=== PATIENT | female | born 1990 | race Caucasian/White ===

== ENCOUNTER 2020-11-04 14:57 | Outpatient (CLI) | payer BC, SELFPAY ==
[2020-11-04 15:58] LABS: Beta HCG Quantitative 8.31 mIU/ML
== END 2020-11-04 14:58 | disposition home or self-care (01) ==
PROVIDERS: Visit Provider Obstetrics & Gynecology
DX: N91.2 Amenorrhea, unspecified (principal)
CPT/HCPCS: 36415; 84702

== ENCOUNTER → 2021-01-10 15:29 | Outpatient (CLI) | payer BC, SELFPAY ==
--- NOTE | ~2021-01-10 | CT_ITS ---
EXAMINATION: CT sinus wo con DATE: 01/10/2021 15:44 INDICATION: Chronic sinusitis. TECHNIQUE: Computed tomography (CT) of the paranasal sinuses was performed without intravenous contra st. Iterative reconstruction technique was employed. The dose-length product was 306.55 mGy-cm. COMPARISON: None FINDINGS: The frontal sinuses are clear. There is mild mucosal thickening in the bilateral ethmoid si nuses. The sphenoid sinuses are clear. The maxillary sinuses are clear. There are Jose cells bilate rally. There is trin[place] bullosa involving the bilateral middle turbinates. There is leftward deviation of the nasal septum. The ostiomeatal units are widely patent. IMPRESSION: 1. Mild mucosal thickening in the ethmoid sinuses. 2. Leftward deviation of the nasal septum. Reviewed, dictated and finalized at location A.
== END ==
PROVIDERS: PCP Student in an Organized Health Care Education/Training Program; Visit Provider Otolaryngology
DX: J32.9 Chronic sinusitis, unspecified (principal); J34.2 Deviated nasal septum
CPT/HCPCS: 70486

== ENCOUNTER 2021-01-23 15:10 | Outpatient (CLI) | payer BC, SELFPAY ==
[2021-01-25 18:45] LABS: Progesterone 29.2 ng/mL (***)
== END 2021-01-23 15:11 | disposition home or self-care (01) ==
LOC: ANHBWCLAB 15:12
PROVIDERS: PCP Student in an Organized Health Care Education/Training Program; Visit Provider Obstetrics & Gynecology
DX: Z34.91 Encounter for supervision of normal pregnancy, unspecified, first trimester (principal); N91.2 Amenorrhea, unspecified; Z3A.00 Weeks of gestation of pregnancy not specified
CPT/HCPCS: 36415; 84144; 84702

== ENCOUNTER 2021-01-25 15:48 | Outpatient (CLI) | payer BC, SELFPAY | END 2021-01-25 15:49 | disposition home or self-care (01) | LOC: ANHBWCLAB 15:50 | PROVIDERS: PCP Student in an Organized Health Care Education/Training Program; Visit Provider Obstetrics & Gynecology | DX: Z34.91 Encounter for supervision of normal pregnancy, unspecified, first trimester (principal); Z3A.01 Less than 8 weeks gestation of pregnancy | CPT/HCPCS: 36415; 84702 ==

== ENCOUNTER 2021-01-26 09:27 | Outpatient (CLI) | payer BC, SELFPAY ==
--- NOTE | ~2021-01-26 | US_ITS ---
EXAMINATION: US OB <=14 wk fetus w TV DATE: 01/26/2021 10:27 INDICATION: Early . TECHNIQUE: Real-time transabdominal and transvaginal pelvic ultrasound was performed. COMPARISON: None. FINDINGS: TRANSABDOMINAL ULTRASOUND: The uterus measures 10.6 x 5.3 x 7.9 cm. TRANSVAGINAL ULTRASOUND: There is an intrauterine gestational sac. A yolk sac is identified. The fet al crown rump length measures 1.3 cm, which correlates with an estimated gestational age of 7 weeks a nd 3 day(s) (+/-) 5 day(s). heart motion is identified measuring 163 beats per minute (bpm) by M-mode Doppler. The right ovary measures 2.5 x 1.3 x 1.6 cm. The left ovary measures 3.1 x 2.6 x 3.0 cm. There is no free fluid in the pelvis. IMPRESSION: 1. Single living intrauterine gestation with estimated date of delivery of 09/11/2021. Reviewed, dictated and finalized at location A. IMPRESSION: 1. Single living intrauterine gestation with estimated date of delivery of 09/11.
== END 2021-01-26 09:28 | disposition home or self-care (01) ==
PROVIDERS: PCP Student in an Organized Health Care Education/Training Program; Visit Provider Obstetrics & Gynecology
DX: O09.291 Supervision of pregnancy with other poor reproductive or obstetric history, first trimester (principal); Z3A.01 Less than 8 weeks gestation of pregnancy
CPT/HCPCS: 76801; 76817

== ENCOUNTER 2021-02-08 15:32 | Outpatient (CLI) | payer BC, SELFPAY ==
[2021-02-08 16:21] LABS: Add Urine Microscopic? YES; Appearance Urine Clear (Clear); Bilirubin Urine Negative (Negative); Blood Urine Negative (Negative); Color Urine Yellow (Yellow); Glucose Urine UA Negative (Negative); Ketones Urine Negative (Negative); Leukocyte Esterase Ur Trace LEU/UL (NEGATIVE); Nitrate Urine Negative (Negative); Protein Urine Negative (Negative); Specific Grav Ur 1.011 (1.001-1.035); Squamous Epithelial Cell Urine Occasional /hpf (Few); Urobilinogen Urine Negative mg/dL (<2.0); WBC Urine 0-3 /hpf (0-3)
[2021-02-08 16:24] LABS: Basophils Percent Auto 0.4 % (0.2-1.2); Eosinophils Percent Auto 0.3 % (0-4.4); Hematocrit 41.5 % (37.0-47.0); Hemoglobin 13.5 g/dL (12.0-15.0); Immature Granulocyte Absolute 0.02 K/mm3 (0.00-0.031); Immature Granulocyte Percent A 0.3 % (0-0.5); Lymphocytes Absolute Auto 2.65 K/mm3 (0.9-3.2); Lymphocytes Percent Auto 36.6 % (18.3-44.2); Mean Corpuscular HGB Conc 32.5 g/dl (32-36); Mean Corpuscular Hemoglobin 30.9 pg (26-34); Mean Platelet Volume 9.5 fl (7.4-10.4); Monocytes Absolute Auto 0.6 K/mm3 (0.1-0.6); Monocytes Percent Auto 7.7 % (2.6-8.5); Neutrophils Percent Auto 54.7 % (45.5-73.1); Platelet Count Result 246 k/mm3 (150-375); Red Blood Count 4.37 M/mm3 (4.2-5.4); Red Cell Distribution Width 12.4 % (11.5-14.5); White Blood Count 7.3 K/mm3 (4.5-10.0)
[2021-02-08 17:02] LABS: Thyroid Stimulating Hormone 0.935 uIU/mL (0.465-4.680)
[2021-02-08 17:12] LABS: HIV 1/2 Ab P24 Ag Result Negative (Negative)
[2021-02-08 18:15] LABS: Hepatitis B Surface Antigen Negative (Negative); Rubella IgG Antibody 67.5 IU/ML
[2021-02-08 18:23] LABS: Rapid Plasma Reagin Non-Reactive (NonReactive)
[2021-02-08 18:27] LABS: Hepatitis C Virus Antibody Negative (Negative)
[2021-02-13 00:16] LABS: Hematocrit 39.4 % (35.0-45.0); Hemoglobin 13.3 g/dL (11.7-15.5); MCH 32.2 pg (27.0-33.0); Red Blood Cell Count 4.15 Mill/uL (3.80-5.10)
[2021-02-15 18:38] LABS: CF Result NEGATIVE (NEGATIVE); Ethnicity NG
== END 2021-02-08 15:33 | disposition home or self-care (01) ==
LOC: ANHLAB 15:34
PROVIDERS: PCP Student in an Organized Health Care Education/Training Program; Visit Provider Obstetrics & Gynecology
DX: Z34.90 Encounter for supervision of normal pregnancy, unspecified, unspecified trimester (principal)
CPT/HCPCS: 36415; 81001; 81220; 82306; 83021; 84443; 85025; 86592; 86703; 86762; 86787; 86803; 86850; 86900; 86901; 87086; 87340; G0432

== ENCOUNTER 2021-06-16 06:53 | Outpatient (CLI) | payer BC, SELFPAY ==
[2021-06-16 09:01] LABS: Basophils Percent Auto 0.5 % (0.2-1.2); Eosinophils Absolute Auto 0.1 K/mm3 (0-0.3); Eosinophils Percent Auto 0.8 % (0-4.4); Hematocrit 38.5 % (37.0-47.0); Hemoglobin 12.6 g/dL (12.0-15.0); Immature Granulocyte Absolute 0.05 K/mm3 (0.00-0.031); Immature Granulocyte Percent A 0.6 % (0-0.5); Lymphocytes Absolute Auto 1.91 K/mm3 (0.9-3.2); Lymphocytes Percent Auto 24.2 % (18.3-44.2); Mean Corpuscular HGB Conc 32.7 g/dl (32-36); Mean Corpuscular Hemoglobin 32.1 pg (26-34); Mean Corpuscular Volume 98.2 fl (80-100); Mean Platelet Volume 9.6 fl (7.4-10.4); Monocytes Absolute Auto 0.6 K/mm3 (0.1-0.6); Monocytes Percent Auto 7.1 % (2.6-8.5); Neutrophils Absolute Auto 5.3 K/mm3 (1.3-6.7); Neutrophils Percent Auto 66.8 % (45.5-73.1); Platelet Count Result 242 k/mm3 (150-375); Red Blood Count 3.92 M/mm3 (4.2-5.4); Red Cell Distribution Width 12.7 % (11.5-14.5); White Blood Count 7.9 K/mm3 (4.5-10.0)
[2021-06-16 09:15] LABS: Glucose 1 Hour PP 50gm Dose 83 mg/dL
== END 2021-06-16 06:54 | disposition home or self-care (01) ==
LOC: ANHLAB 06:55
PROVIDERS: PCP Student in an Organized Health Care Education/Training Program; Visit Provider Obstetrics & Gynecology
DX: Z34.90 Encounter for supervision of normal pregnancy, unspecified, unspecified trimester (principal)
CPT/HCPCS: 36415; 82947; 85025

== ENCOUNTER 2021-07-25 15:28 | Outpatient (CLI) | payer BC, SELFPAY ==
[2021-07-25 15:59] LABS: Basophils Percent Auto 0.4 % (0.2-1.2); Eosinophils Percent Auto 0.4 % (0-4.4); Hematocrit 36.4 % (37.0-47.0); Hemoglobin 12.3 g/dL (12.0-15.0); Immature Granulocyte Absolute 0.04 K/mm3 (0.00-0.031); Immature Granulocyte Percent A 0.4 % (0-0.5); Lymphocytes Absolute Auto 2.52 K/mm3 (0.9-3.2); Lymphocytes Percent Auto 27.6 % (18.3-44.2); Mean Corpuscular HGB Conc 33.8 g/dl (32-36); Mean Corpuscular Hemoglobin 31.3 pg (26-34); Mean Corpuscular Volume 92.6 fl (80-100); Mean Platelet Volume 9.4 fl (7.4-10.4); Monocytes Absolute Auto 0.7 K/mm3 (0.1-0.6); Monocytes Percent Auto 7.9 % (2.6-8.5); Neutrophils Absolute Auto 5.8 K/mm3 (1.3-6.7); Neutrophils Percent Auto 63.3 % (45.5-73.1); Platelet Count Result 249 k/mm3 (150-375); Red Blood Count 3.93 M/mm3 (4.2-5.4); Red Cell Distribution Width 12.1 % (11.5-14.5); White Blood Count 9.1 K/mm3 (4.5-10.0)
[2021-07-25 16:39] LABS: HIV 1/2 Ab P24 Ag Result Negative (Negative)
[2021-07-26 06:25] LABS: Rapid Plasma Reagin Non-Reactive (NonReactive)
== END 2021-07-25 15:29 | disposition home or self-care (01) ==
LOC: ANHLAB 15:30
PROVIDERS: PCP Student in an Organized Health Care Education/Training Program; Visit Provider Obstetrics & Gynecology
DX: Z36.89 Encounter for other specified antenatal screening (principal); Z3A.33 33 weeks gestation of pregnancy
CPT/HCPCS: 36415; 85025; 86592; 86703; G0432

== ENCOUNTER 2021-09-11 11:29 | Outpatient (RCR) | payer BC, SELFPAY ==
[2021-08-08 16:31] VITALS: BP 126/75; PULSE 88
--- NOTE | ~2021-09-11 | US_ITS ---
EXAMINATION: US OB limited w BPP DATE: 09/11/2021 12:29 INDICATION: Term . Assess amniotic fluid index and biophysical profile. TECHNIQUE: Real-time pelvic ultrasound was performed. The interpreting radiologist was not present fo r the study. COMPARISON: None. FINDINGS: There is a single living fetus in vertex presentation. The placenta is posterior. heart rate i s 153 beats per minute (bpm). Normal amniotic fluid index of 16.0 cm (5th%-95%: 7.1-21.4 cm at 40 wee ks estimated gestational age) . Biophysical profile performed by the technologist: breathing (30 sec sustained breathing in 30 minutes): 2 out of 2 movement (3 gross body movements in 30 minutes): 2 out of 2 tone (one episode of olpvfgt-sgjrpvtix-fyjsmkx limb movement): 2 out of 2 Amniotic fluid pocket (2 cm): 2 out of 2 Total score: 8 out of 8 IMPRESSION: 1. Single living fetus in vertex presentation with heart rate of 153 bpm. 2. Biophysical profile 8 out of 8. 3. Normal amniotic fluid index of 16.0 cm. Reviewed, dictated and finalized at location B. K WASHER
--- NOTE | ~2021-09-11 | US_ITS ---
EXAMINATION: US OB BPP wo non-stress DATE: 08/08/2021 17:18 INDICATION: Bradycardia. Third trimester. TECHNIQUE: Real-time pelvic ultrasound was performed. COMPARISON: Ultrasound 01/26/2021 FINDINGS: There is a single living fetus in vertex presentation. The placenta is posterior. heart rate i s 129 beats per minute (bpm). Biophysical profile performed by the technologist: breathing (30 sec sustained breathing in 30 minutes): 2 out of 2 movement (3 gross body movements in 30 minutes): 2 out of 2 tone (one episode of hvxsqyx-jpfijfnqv-glxligf limb movement): 2 out of 2 Amniotic fluid pocket (2 cm): 2 out of 2 Total score: 8 out of 8 IMPRESSION: 1. Single living fetus in vertex presentation. 2. Biophysical profile 8 out of 8. Reviewed, dictated and finalized at location A. RAFT INSPECTOR
[2021-09-11 14:21] VITALS: BP 125/85; PULSE 88
== END 2021-10-13 20:42 | disposition home or self-care (01) ==
LOC: ANHOBOP 11:29
PROVIDERS: PCP Student in an Organized Health Care Education/Training Program; Visit Provider Obstetrics & Gynecology
DX: O36.8330 Maternal care for abnormalities of the fetal heart rate or rhythm, third trimester, not applicable or unspecified (principal); Z3A.35 35 weeks gestation of pregnancy; Z3A.40 40 weeks gestation of pregnancy
CPT/HCPCS: 59025; 76815; 76819

== ENCOUNTER 2021-09-13 18:53 | Inpatient (IN) | payer BC, SELFPAY ==
[2021-09-13 19:16] VITALS: BMI 32.7
--- NOTE | 2021-09-13 19:16 | LDADM ---
This patient, Jaida Balbuena, was admitted to Labor/Delivery/Recovery 104 on 09/13/21 at 18:53. Plans for labor, pain management and were discussed with patient. Patient/family oriented to hospital policies and general routines including ID bracelet, bed and alarms, visiting hours, pain management, procedures, bathroom and other care routines, personal items, smoking policy, room service/diet and guest tray routines, security routines, and visiting hours. Patient/Family are encouraged to report perceived risks to care and to ask questions if they do not understand what they are told or what they should do. See OBIX for further documentation.
[2021-09-13 19:31] LABS: Basophils Percent Auto 0.4 % (0.2-1.2); Eosinophils Percent Auto 0.3 % (0-4.4); Hematocrit 40.4 % (37.0-47.0); Hemoglobin 13.7 g/dL (12.0-15.0); Immature Granulocyte Absolute 0.04 K/mm3 (0.00-0.031); Immature Granulocyte Percent A 0.4 % (0-0.5); Lymphocytes Absolute Auto 2.49 K/mm3 (0.9-3.2); Lymphocytes Percent Auto 22.6 % (18.3-44.2); Mean Corpuscular HGB Conc 33.9 g/dl (32-36); Mean Corpuscular Hemoglobin 31.3 pg (26-34); Mean Corpuscular Volume 92.2 fl (80-100); Mean Platelet Volume 9.7 fl (7.4-10.4); Monocytes Absolute Auto 0.9 K/mm3 (0.1-0.6); Monocytes Percent Auto 7.9 % (2.6-8.5); Neutrophils Absolute Auto 7.5 K/mm3 (1.3-6.7); Neutrophils Percent Auto 68.4 % (45.5-73.1); Platelet Count Result 234 k/mm3 (150-375); Red Blood Count 4.38 M/mm3 (4.2-5.4); Red Cell Distribution Width 12.9 % (11.5-14.5)
[2021-09-13] MEDS: DINOPROSTONE 10 MG VAG INSERT VAGINAL (20:47)
[2021-09-13 21:08] VITALS: RESP 18; TEMP 37.3
[2021-09-13 22:05] VITALS: BP 134/84; PULSE 86
[2021-09-13 22:30] VITALS: BP 139/98; PULSE 89
[2021-09-14] VITALS (68 sets, daily range): BP systolic 97–142; BP diastolic 54–99; PULSE 74–138; RESP 16–18; TEMP 36.4–37.2; O2SAT 97–100
[2021-09-14] MEDS: CALCIUM CARBONATE (TUMS) 500 MG (200 MG ELEMENTAL) PO (00:17)
[2021-09-14] MEDS: LACTATED RINGERS 1,000 ML 125 ML IV CONT (00:44)
--- NOTE | 2021-09-14 01:15 | WPDANESEPP ---
Anes - Eval Pre Procedure Procedure: Labor epidural Date/Time: 09/14/21 01:15 Surgeon: rudy Preop Diagnosis: Abd pain with contractions Pre Op Diagnosis: IOL Patient Data Age: 30 Gender: F Height: 1.68 m Weight: 92 kg Last Vital Signs Temp 99.2 F 09/13/21 21:08 Pulse 89 09/13/21 22:30 Resp 18 09/13/21 21:08 BP 139/98 H 09/13/21 22:30 Allergies Allergy/AdvReac Type Severity Reaction Status Date / Time No Known Allergies Allergy Verified 09/12/21 15:23 Home Medications Medication Instructions Recorded Confirmed Type cetirizine 10 mg tablet 10 mg PO DAILY PRN 01/23/21 08/29/21 History fluticasone propionate 50 1 spray INTRANASAL DAILY 01/23/21 08/29/21 History mcg/actuation nasal spray,suspension prenat.vits,naz,tyg-sxsw-zfldm 1 tablet PO DAILY 01/23/21 08/29/21 History Laboratory Tests 09/13/21 09/13/21 09/13/21 19:24 19:24 19:24 WBC 11.0 K/mm3 H K/mm3 (4.5-10.0) RBC 4.38 M/mm3 M/mm3 (4.2-5.4) Hgb 13.7 g/dL g/dL (12.0-15.0) Hct 40.4 % % (37.0-47.0) MCV 92.2 fl fl (80-100) MCH 31.3 pg pg (26-34) MCHC 33.9 g/dl g/dl (32-36) RDW 12.9 % % (11.5-14.5) Plt Count 234 k/mm3 k/mm3 (150-375) MPV 9.7 fl fl (7.4-10.4) Immature Gran % (Auto) 0.4 % % (0-0.5) Neut % (Auto) 68.4 % % (45.5-73.1) Lymph % (Auto) 22.6 % % (18.3-44.2) [place] % (Auto) 7.9 % % (2.6-8.5) Eos % (Auto) 0.3 % % (0-4.4) Baso % (Auto) 0.4 % % (0.2-1.2) Lymph # (Auto) 2.49 K/mm3 K/mm3 (0.9-3.2) [place] # (Auto) 0.9 K/mm3 H K/mm3 (0.1-0.6) Eos # (Auto) 0.0 K/mm3 K/mm3 (0-0.3) Baso # (Auto) 0.0 K/mm3 K/mm3 (0.0-0.1) Abs Immat Gran (auto) 0.04 K/mm3 H K/mm3 (0.00-0.031) Absolute Neuts (auto) 7.5 K/mm3 H K/mm3 (1.3-6.7) Absolute Nucleated RBC 0.0 K/mm3 K/mm3 (0.0-0.012) Nucleated RBC % 0.0 % % (0.0-0.2) RPR Pending Blood Type O Positive Antibody Screen Negative Patient hx anesthesia problems: none Family hx anesthesia problems: none Results Review: All pre-operative results and documents have been reviewed as part of the pre-operative evaluation. [facility] Past Medical History Medical History Overweight (BMI 25.0-29.9) and not yet delivered Seasonal allergies Family History Family History Father Hypertension Family history of elevated blood lipids Grandparent Family history of elevated blood lipids Cerebrovascular accident Social History Social History Smoking status: Never smoker Second hand tobacco smoke exposure: No Alcohol intake: current Alcohol use details: Rarely Substance use: unknown Spiritual care concerns: No Exam Day of Procedure 09/14/21 01:15 Patient weight: overweight Airway: Mallampati scale class II Neurological: alert and oriented
[2021-09-14] MEDS: OXYTOCIN 30 UNITS/NS 500 ML 30 UNITS/500 ML BAG 6 UNITS IV CONT (04:23)
[2021-09-14] MEDS: ONDANSETRON INJ 4 MG/2 ML VIAL IV PUSH (06:37)
[2021-09-14] MEDS: OXYTOCIN 30 UNITS/NS 500 ML 30 UNITS/500 ML BAG 125 UNITS IV CONT (12:46)
--- NOTE | 2021-09-14 12:53 | PM.IMHP ---
H&P: HPI History of Present Illness Date/Time: 09/14/21 12:53 Patient admitted on 09/13/2021 for MIL for post dates. She is at 40 2/7 days by LMP of 12/05/20 with an EDC 09/11/21 consistent with an 8 week ultrasound. PNC has been uncomplicated. Labs reviewed. GSB neg. She has been informed of risk benefit of spontaneous labor versus induction of labor. She desires induction of labor. Chief Complaint: Induction of labor Review of Systems Review of Systems: All systems reviewed & are unremarkable except as noted in HPI and below Constitutional: Constitutional: Reports no additional constitutional complaints and Denies headache(s) Eyes: Eyes: Denies spots in vision ENT: Reports system reviewed and no additional complaints, except as documented and Denies headache(s) Cardiovascular: Cardiovascular: Denies chest pain and Denies dyspnea Respiratory: Respiratory: Denies dyspnea Gastrointestinal: Gastrointestinal: Reports no additional gastrointestinal complaints Genitourinary: Genitourinary: Reports amenorrhea Musculoskeletal: Musculoskeletal: Reports no additional musculoskeletal complaints Integumentary/Breasts: Skin/Breast: Denies breast mass and Denies rash Neurologic: Denies headache(s) Psychiatric: Psychiatric: Reports no additional psychiatric complaints [facility] Past Medical History Medical History Overweight (BMI 25.0-29.9) and not yet delivered Seasonal allergies Family History Family History Father Hypertension Family history of elevated blood lipids Grandparent Family history of elevated blood lipids Cerebrovascular accident Social History Social History Smoking status: Never smoker Second hand tobacco smoke exposure: No Alcohol intake: current Alcohol use details: Rarely Substance use: unknown Spiritual care concerns: No Meds Home Medications and Allergies Home Medications Medication Instructions Recorded Confirmed Type cetirizine 10 mg tablet 10 mg PO DAILY PRN 01/23/21 08/29/21 History fluticasone propionate 50 1 spray INTRANASAL DAILY 01/23/21 08/29/21 History mcg/actuation nasal spray,suspension prenat.vits,naz,xoq-gzib-jwxsg 1 tablet PO DAILY 01/23/21 08/29/21 History Allergies Allergy/AdvReac Type Severity Reaction Status Date / Time No Known Allergies Allergy Verified 09/12/21 15:23 Vital Signs Vital Signs - 24 hr 09/13/21 21:08 09/13/21 22:05 09/13/21 22:30 Temperature 99.2 F Pulse Rate 86 89 Respiratory Rate 18 Blood Pressure 134/84 139/98 H Pulse Oximetry 09/14/21 01:18 09/14/21 01:19 09/14/21 01:21 Temperature Pulse Rate 100 96 Respiratory Rate Blood Pressure 137/83 134/82 Pulse Oximetry 97 09/14/21 01:23 09/14/21 01:24 09/14/21 01:28 Temperature Pulse Rate 99 105 H Respiratory Rate Blood Pressure 142/90 H 108/81 Pulse Oximetry 98 98 09/14/21 01:30 09/14/21 01:33 09/14/21 01:36 Temperature Pulse Rate 93 98 102 H Respiratory Rate Blood Pressure 101/64 104/67 103/75 Pulse Oximetry 99 09/14/21 01:38 09/14/21 01:40 09/14/21 01:42 Temperature Pulse Rate 101 H 92 Respiratory Rate Blood Pressure 103/71 102/61 Pulse Oximetry 99 09/14/21 01:43 09/14/21 01:45 09/14/21 01:48 Temperature Pulse Rate 85 80 Respiratory Rate Blood Pressure 100/61 115/58 L Pulse Oximetry 99 98 09/14/21 01:52 09/14/21 01:53 09/14/21 01:54 Temperature Pulse Rate 102 H 96 Respiratory Rate Blood Pressure 104/59 L 120/81 Pulse Oximetry 98 09/14/21 01:58 09/14/21 02:00 09/14/21 02:15 Temperature Pulse Rate 107 H 84 82 Respiratory Rate Blood Pressure 106/62 105/54 L 100/59 L Pulse Oximetry 100 09/14/21 02:30 09/14/21 02:45 09/14/21 03:00 Temperature 99 F Pulse Rate 102 H
--- NOTE | 2021-09-14 12:55 | PM.OBPRVD ---
OB - Delivery Note Procedure Delivery date: 09/14/21 Procedure: Spontaneous vaginal delivery Induction method: per misoprostol protocol Delivery monitor: external FHT Route of delivery: Laceration Description: Perineal - 2nd Degree Delivery repair: vicryl ( 3 0 Vicryl) Specimen: Yes ( placenta and cord) Quantitative Blood Loss (ml): 250 Anesthesia type: Epidural Disposition: floor Complications: retained placental membranes removed manually [place] Baby Date of : 09/14/21 Weeks of gestation at delivery: 40 Infant gender: Female Weight (pounds): 8 Weight (ounces): 12 presentation: vertex position: Left Occiput Anterior Placenta delivery description: Spontaneous and Uterine Exploration ( this was performed after inspecting the placenta and it appeared that the membranes were not all present) cord vessel description: 3 Vessels Narrative: patient admitted on 09/13/2020 for medical induction of labor for postdates. Misoprostol was initiated she started having decelerations with this and the misoprostol was not silk screen printer machine the adequate position. She was then checked and her cervix was 4 cm the misoprostol was removed. She progressed into active labor. She had assisted rupture of membranes at approximately 8:20 a.m. she was dilated to a JOZEF at that time. The fluid was clear. She did receive Pitocin for augmentation and she dilated to complete. She pushed for approximately an hour and delivered a female infant. Nose mouth suctioned at perineum. The anterior shoulder was delivered and the infant was delivered. She was vigorously crying and placed on maternal abdomen. Terminal meconium noted. Delayed cord calmaping for 45 seconds until cord was apulsatile. The cord was then clamped and cut. Cord blood and cord gases obtained. Placenta delivery spontaneous. The placenta was inspected and it appeared that all of membranes were not present. The uterine cavity was explored and membranes were palpated and adhesed to cavity. The membranes were grasped with ring forceps and maually exploration and the membranes were retrieved. The uterine tone was firm. She sustained a second degree perineal laceration repaired with 3.0 vicryl. She tolerated procedure well. EBL 250cc. Sponge count correct. [facility] Delivery Billing Delivery Delivery: Delivery Charge
[2021-09-14 13:58] LABS: Rapid Plasma Reagin Non-Reactive (NonReactive)
[2021-09-14] MEDS: BENZOCAINE 20% AER SPR (*SP) 56 GM CAN 1 SPRAY TOPICAL (14:51)
[2021-09-14] MEDS: WITCH HAZEL 40 PADS 1 PAD TOPICAL (14:51)
--- NOTE | 2021-09-14 15:10 | PC.NURSE ---
Patient transferred to post room #280 per wheelchair. Support person present. Oriented to unit, room, information board, rooming in, admission packet and security measures. Patient verbalizes understanding.
--- NOTE | 2021-09-14 15:51 | PC.NURSE ---
1550 - Consulted with patient, reviewed infant feeding cues, frequencies and skin to skin. Father of baby demonstrated stimulation techniques to wake infant for feeding. Primary RN assisting mom to the restroom, then will be placed skin to skin. Instructed mother to call out for RN assistance if she is unable to latch for feeding or she has discomfort with nursing. Instructed feeding should be initiated three hours from start of last feeding or if feeding cues are noted before. Mother voiced understanding of information shared.
--- NOTE | 2021-09-14 16:30 | PC.NURSE ---
Nipple shield provided to mother due to ineffective latch. Instructions given on application and cleaning of shield. Discussed nipple shield precautions and possible complications. Patient able to return demonstration on proper application of shield. Discussed the need to initiate pumping if continues to nurse with the shield. Patient verbalizes understanding.
[2021-09-14] MEDS: IBUPROFEN 600 MG TABLET PO ×2 (18:08→23:30)
[2021-09-14] MEDS: DOCUSATE SODIUM 100 MG CAPSULE PO (18:09)
--- NOTE | 2021-09-14 18:30 | PC.NURSE ---
Breast pump provided due to nipple shield use. Instructions given on breast pump care and usage, pumping schedule, nipple care, and collection and storage of breast milk. Encouraged brdz-ff-giwz, breast massage and manual expression to stimulate supply. Assessed patient for correct flange size, placement and draw. Patient verbalizes and demonstrates understanding of instructions.
[2021-09-15 04:13] LABS: Hematocrit 37.3 % (37.0-47.0); Hemoglobin 12.4 g/dL (12.0-15.0)
[2021-09-15] MEDS: IBUPROFEN 600 MG TABLET PO ×4 (05:58→23:50)
[2021-09-15] MEDS: WITCH HAZEL 40 PADS 1 PAD TOPICAL (07:37)
[2021-09-15] MEDS: DOCUSATE SODIUM 100 MG CAPSULE PO ×2 (07:37→17:00)
[2021-09-15] MEDS: BENZOCAINE 20% AER SPR (*SP) 56 GM CAN 1 SPRAY TOPICAL (07:37)
[2021-09-15] MEDS: MULTIVIT/MIN/PREN/FOL AC/IRON TABLET 1 TAB PO (07:42)
[2021-09-15 08:00] VITALS: BP 108/78; PULSE 85; RESP 18; TEMP 36.6
--- NOTE | 2021-09-15 09:59 | WPDANLDPN2 ---
Anes-Prog Note L&D Date/Time: 09/15/21 09:59 Comfortable throughout: labor and delivery Neuraxial method: epidural Epidural/Spinal procedure site: clean & non-tender Neuro status: Neuro function grossly intact. Cardiovascular status: normal Respiratory status: normal Airway patency: baseline Mental status: baseline Post-Op hydration status: normal Vital Signs: Last Vital Signs Temp 37.1 C 09/14/21 20:57 Pulse 93 09/14/21 20:57 Resp 16 09/14/21 20:57 BP 127/80 09/14/21 20:57 Pulse Ox 100 09/14/21 01:58 Pain score (VAS): 3 Post-procedural complaints: none Patient feedback: Patient satisfied with anesthetic care.
--- NOTE | 2021-09-15 11:15 | PC.NURSE ---
0777 - Early shift reported that mom has been well with a nipple shield. Primary RN is present to assess pt. Pt states the last attempt to breastfeed with a nipple shield did not go very well. placed skin to skin. Pt verbalizes will call out for assistance. [id number] - Primary RN reports that sugar water used with nipple shield to latch and feed baby, then pt plans to pump (as set up by oriana Saxena RN) and supplement with pumped colostrum.
[2021-09-15 12:15] VITALS: BP 131/84; PULSE 87; RESP 16; TEMP 37; O2SAT 100
[2021-09-15 12:30] VITALS: BP 131/84; PULSE 87; RESP 16; TEMP 37; O2SAT 100
--- NOTE | 2021-09-15 12:35 | PM.OBPNVD ---
OB - PN: Subj Subjective Date/time seen: 09/15/21 12:35 Patient comments: pain well controlled, tolerating diet and other (Decreasing lochia.) baby status: doing well and nursing well Desmet feeding status: exclusively breast feeding OB - PN: Obj Data Labs CBC & Chem 7: 09/15/21 03:54 Labs: Laboratory Results - last 24 hr 09/13/21 09/15/21 19:24 03:54 Hgb 12.4 Hct 37.3 RPR Non-reactive OB - PN A/P Plan day: 1 Plan: routine care Comments: Patient doing well. Routine care. Time Spent With Patient Time: Total time spent is greater than 50% in coordination of care (as documented) at patient's floor/unit and/or counseling patient: Exam Psych: Affect: normal affect Other: Abd: fundus firm below umbilicus, nontender Perineum: healing Ext: nontender
[2021-09-15 19:03] VITALS: BP 115/82; PULSE 81; RESP 16; TEMP 36.8; O2SAT 98
[2021-09-16 07:30] VITALS: BP 114/73; PULSE 81; RESP 18; TEMP 36.7; O2SAT 98
--- NOTE | 2021-09-16 10:33 | PM.OBPNVD ---
OB - PN: Subj Subjective Date/time seen: 09/16/21 10:33 Patient comments: no complaints, pain well controlled and other (Lochia similar to menses) [place] baby status: doing well OB - PN: Obj Data Labs CBC & Chem 7: 09/15/21 03:54 OB - PN A/P Plan day: 2 (s/p vaginal delivery, doing well) Plan: routine care, discharge home and other (Follow up in office in 4-6 weeks) Time Spent With Patient Time: Total time spent is greater than 50% in coordination of care (as documented) at patient's floor/unit and/or counseling patient: Time with patient: less than 15 minutes Exam Const: General: no acute distress GI: Inspection: other (Fundus firm and nontender below umbilicus) GI Palp: Yes Soft to palpation and No Tenderness to palpation present (GI) Extrem: General: no edema
--- NOTE | 2021-09-16 10:34 | PM.OBDSVD ---
DS: Admitting Diagnosis Discharge Date 09/16/2021 Admitting Diagnosis induction of labor DS: Discharge Diagnosis Discharge Diagnosis (1) (spontaneous vaginal delivery): Code(s): O80 - Encounter for full-term uncomplicated delivery Status: Acute OB - DS: Summary OB Procedures : None OB Procedures Intrapartum: Spontaneous Vag Delivery, Uterine exploration and Retained placenta OB Procedures: : None Peripartum Data Infant Delivery Method: Natural Vaginal Laceration Description: Perineal - 2nd Degree complications: none and retained placenta (with manual removal) Status at Discharge Functional status at discharge: independent ambulation Overall status at discharge: patient is progressing back to baseline Time Spent with Patient Time attestation: Total time spent providing and/or coordinating discharge services: Time spent: Less than 30 minutes DS: Data Data Completed and Pending Pending studies at discharge: Pending at discharge 09/14/21 11:48 Surgical [PTH] Routine Discharge Plan Discharge Attending physician on discharge: Sonido Barger Discharging Clinician: Carolin Barron Patient Disposition: Home, Self-Care Activity: may shower and pelvic rest Diet: as tolerated Discharge Instructions: Education: Mom and Baby Guide Given to: Mother Follow-Up: Call your delivering provider's office for an appointment to be seen in: 4-6 Weeks [facility]. Appointment Date/Time: September 18, 2021 at 10:00 am What to expect at your follow-up visit: Blood Pressure Check Physical Assessment Call [phone] if you are unable to keep your appointment time. BREAST CARE: * Wear a snug supportive bra. * For engorgement discomfort: Breast Feeding: * Apply warm moist washcloths * Express milk as needed to relieve engorgement * Wear loose clothing * For sore nipples: * Identify correct latch-on * Apply warm moist washcloths before and after nursing * Air dry nipples after nursing * May apply Lansinoh cream to nipples EPISIOTOMY/PERINEAL CARE: * Until bleeding stops, use your heather bottle after urinating * Change your pad frequently throughout the day * You may take sitz baths several times a day (fill your bathtub with warm water and soak for 20 minutes.) Do NOT bathe in the water * No tub baths until seen by your physician - You may shower ACTIVITY: * Rest as much as possible. * Do not exercise or lift anything heavier than your baby (such as laundry or other children.) * Avoid stairs or driving as much as possible. * Do not put anything into the vagina. No douching, tampons, or sexual activity until seen by physician. NOTIFY PHYSICIAN IF YOU HAVE ANY QUESTIONS OR IF ANY OF THE FOLLOWING SYMPTOMS OCCUR: * If your vaginal area becomes red, swollen, or more painful than what you have experienced in the hospital. * If your vaginal bleeding becomes foul smelling. * If your vaginal bleeding becomes more heavy than a period or if your bleeding changes from the color it is now to bright crayon red'. However, you may pass an occasional walnut-sized clot once or twice for the first week . * If you experience a sharp, shooting pain in you calves. * If you discover a hard, reddened area on your breast or if you experience flu-like symptoms. DIET: * Eat regular, well-balanced meals. * Drink plenty of fluids daily. If , drink to thirst. Patient Instructions: Antibiotic Form, Vaginal Delivery (DC) Stand Alone Forms: General Discharge Information Follow-up/Referrals: Sonido Barger MD [Physician] - 6 Weeks Discharge Medications: New ibuprofen 600 mg Tablet 600 mg PO Q6H PRN (Reason: Cramping) Qty: 60 RF: 0 Continued prenat.vits,naz,gho-ohqj-evmly T
[2021-09-18 10:18] VITALS: BP 138/89; PULSE 89; RESP 20; TEMP 37.1; O2SAT 96
== END 2021-09-16 14:30 | disposition home or self-care (01) | DRG 807 ==
LOC: ANHOB2 09-16 10:35 → ANHLDR 09-19 07:35 → ANHOB2 09-19 07:35
PROVIDERS: Admitting Provider Obstetrics & Gynecology; PCP Student in an Organized Health Care Education/Training Program; Visit Provider Obstetrics & Gynecology
DX: O48.0 Post-term pregnancy (principal); Z37.0 Single live birth; Z3A.40 40 weeks gestation of pregnancy; O70.1 Second degree perineal laceration during delivery; O73.0 Retained placenta without hemorrhage; O36.8330 Maternal care for abnormalities of the fetal heart rate or rhythm, third trimester, not applicable or unspecified
CPT/HCPCS: 36415; 85014; 85018; 85025; 86592; 86850; 86900; 86901; 88307; A9270; J2405; J2590; J2795; J7120

== ENCOUNTER 2024-03-11 14:31 | Outpatient (CLI) | payer BC, SELFPAY ==
--- NOTE | ~2024-03-11 | US_ITS ---
EXAMINATION: US OB <=14 wk fetus w TV DATE: 03/11/2024 15:34 INDICATION: Amenorrhea, unspecified. TECHNIQUE: Real-time transabdominal and transvaginal pelvic ultrasound was performed. COMPARISON: None. FINDINGS: TRANSABDOMINAL ULTRASOUND: The uterus measures 13.1 x 7.2 x 8.9 cm. TRANSVAGINAL ULTRASOUND: There is an intrauterine gestational sac with mean diameter of 3.7 cm. A yol k sac is identified. The crown rump length measures 2.5 cm, which correlates with an estimated gestational age of 9 weeks and 1 day(s) (+/-) 4 day(s). heart motion is identified measuring 1 71 beats per minute (bpm) by M-mode Doppler. The right ovary measures 4.1 x 2.8 x 2.9 cm. The left ov lance measures 1.5 x 2.0 x 1.9 cm. There is no free fluid in the pelvis. IMPRESSION: 1. Single living intrauterine gestation with estimated date of delivery of 10/13/2024. Reviewed, dictated and finalized at location A. IMPRESSION: 1. Single living intrauterine gestation with estimated date of delivery of 10/13.
== END 2024-03-11 14:32 | disposition home or self-care (01) ==
LOC: ANHIMG 14:38
PROVIDERS: PCP Student in an Organized Health Care Education/Training Program; Visit Provider Nurse Practitioner Obstetrics & Gynecology
DX: N91.2 Amenorrhea, unspecified (principal)
CPT/HCPCS: 76801; 76817

== ENCOUNTER 2024-03-31 16:12 | Outpatient (CLI) | payer BC, SELFPAY ==
[2024-03-31 16:50] LABS: Basophils Percent Auto 0.5 % (0.2-1.2); Eosinophils Absolute Auto 0.1 K/mm3 (0-0.3); Eosinophils Percent Auto 2.2 % (0-4.4); Hematocrit 41.7 % (37.0-47.0); Immature Granulocyte Absolute 0.01 K/mm3 (0.00-0.031); Immature Granulocyte Percent A 0.2 % (0-0.5); Lymphocytes Absolute Auto 2.48 K/mm3 (0.9-3.2); Lymphocytes Percent Auto 39.7 % (18.3-44.2); Mean Corpuscular HGB Conc 33.6 g/dl (32-36); Mean Corpuscular Hemoglobin 30.7 pg (26-34); Mean Corpuscular Volume 91.4 fl (80-100); Mean Platelet Volume 9.4 fl (7.4-10.4); Monocytes Absolute Auto 0.5 K/mm3 (0.1-0.6); Monocytes Percent Auto 7.4 % (2.6-8.5); Neutrophils Absolute Auto 3.1 K/mm3 (1.3-6.7); Platelet Count Result 246 k/mm3 (150-375); Red Blood Count 4.56 M/mm3 (4.2-5.4); Red Cell Distribution Width 12.6 % (11.5-14.5); White Blood Count 6.2 K/mm3 (4.5-10.0)
[2024-03-31 16:58] LABS: Appearance Urine Clear (Clear); Bacteria Urine None Seen /hpf; Bilirubin Urine Negative (Negative); Blood Urine Negative (Negative); Color Urine Yellow (Yellow); Glucose Urine UA Negative (Negative); Ketones Urine Negative (Negative); Leukocyte Esterase Ur Trace LEU/UL (Negative); Nitrate Urine Negative (Negative); Non Pathogenic Casts 0-2; Protein Urine Negative (Negative); RBC Urine 0-2 /hpf (0-2); Specific Grav Ur 1.016 (1.001-1.035); Squamous Epithelial Cell Urine None Seen /hpf (Few); Urobilinogen Urine 0.2 mg/dL (<2.0); WBC Urine 0-5 /hpf (0-3); pH Urine 6.5 (5.0-9.0)
[2024-03-31 17:01] LABS: Add Urine Microscopic? YES
[2024-03-31 19:16] LABS: Hepatitis B Surface Antigen Negative (Negative); Rubella IgG Antibody 53.9 IU/ML
[2024-03-31 19:21] LABS: HIV 1/2 Ab P24 Ag Result Negative (Negative)
[2024-03-31 19:31] LABS: Hepatitis C Virus Antibody Negative (Negative)
[2024-04-01 11:57] LABS: Rapid Plasma Reagin Non-Reactive (NonReactive)
== END 2024-03-31 16:13 | disposition home or self-care (01) ==
LOC: ANHLAB 16:13
PROVIDERS: PCP Student in an Organized Health Care Education/Training Program; Visit Provider Obstetrics & Gynecology
DX: Z34.90 Encounter for supervision of normal pregnancy, unspecified, unspecified trimester (principal)
CPT/HCPCS: 36415; 81001; 85025; 86592; 86703; 86762; 86787; 86803; 86850; 86900; 86901; 87086; 87340; G0432

== ENCOUNTER 2024-06-29 10:58 | Outpatient (CLI) | payer BC, SELFPAY ==
[2024-06-29 12:21] LABS: Basophils Percent Auto 0.4 % (0.2-1.2); Eosinophils Absolute Auto 0.1 K/mm3 (0-0.3); Eosinophils Percent Auto 0.8 % (0-4.4); Hematocrit 36.1 % (37.0-47.0); Immature Granulocyte Absolute 0.02 K/mm3 (0.00-0.031); Immature Granulocyte Percent A 0.3 % (0-0.5); Lymphocytes Absolute Auto 1.86 K/mm3 (0.9-3.2); Lymphocytes Percent Auto 24.3 % (18.3-44.2); Mean Corpuscular HGB Conc 33.2 g/dl (32-36); Mean Corpuscular Hemoglobin 31.3 pg (26-34); Mean Platelet Volume 9.2 fl (7.4-10.4); Monocytes Absolute Auto 0.5 K/mm3 (0.1-0.6); Monocytes Percent Auto 6.4 % (2.6-8.5); Neutrophils Absolute Auto 5.2 K/mm3 (1.3-6.7); Neutrophils Percent Auto 67.8 % (45.5-73.1); Platelet Count Result 248 k/mm3 (150-375); Red Blood Count 3.84 M/mm3 (4.2-5.4); White Blood Count 7.7 K/mm3 (4.5-10.0)
[2024-06-29 12:38] LABS: Glucose 1 Hour PP 50gm Dose 114 mg/dL
== END 2024-06-29 10:59 | disposition home or self-care (01) ==
LOC: ANHLAB 11:00
PROVIDERS: PCP Student in an Organized Health Care Education/Training Program; Visit Provider Obstetrics & Gynecology
DX: Z34.90 Encounter for supervision of normal pregnancy, unspecified, unspecified trimester (principal); Z3A.00 Weeks of gestation of pregnancy not specified
CPT/HCPCS: 36415; 82947; 85025

== ENCOUNTER 2024-08-14 07:05 | Outpatient (CLI) | payer BC, SELFPAY ==
[2024-08-14 07:40] LABS: Basophils Percent Auto 0.4 % (0.2-1.2); Eosinophils Absolute Auto 0.1 K/mm3 (0-0.3); Eosinophils Percent Auto 0.7 % (0-4.4); Hematocrit 37.2 % (37.0-47.0); Hemoglobin 11.9 g/dL (12.0-15.0); Immature Granulocyte Absolute 0.03 K/mm3 (0.00-0.031); Immature Granulocyte Percent A 0.4 % (0-0.5); Lymphocytes Absolute Auto 1.93 K/mm3 (0.9-3.2); Lymphocytes Percent Auto 27.8 % (18.3-44.2); Mean Corpuscular Hemoglobin 30.4 pg (26-34); Mean Corpuscular Volume 95.1 fl (80-100); Mean Platelet Volume 9.5 fl (7.4-10.4); Monocytes Absolute Auto 0.5 K/mm3 (0.1-0.6); Monocytes Percent Auto 6.5 % (2.6-8.5); Neutrophils Absolute Auto 4.5 K/mm3 (1.3-6.7); Neutrophils Percent Auto 64.2 % (45.5-73.1); Platelet Count Result 210 k/mm3 (150-375); Red Blood Count 3.91 M/mm3 (4.2-5.4); Red Cell Distribution Width 12.5 % (11.5-14.5); White Blood Count 6.9 K/mm3 (4.5-10.0)
[2024-08-14 08:34] LABS: HIV 1/2 Ab P24 Ag Result Negative (Negative)
[2024-08-14 08:39] LABS: Rapid Plasma Reagin Non-Reactive (NonReactive)
== END 2024-08-14 07:06 | disposition home or self-care (01) ==
LOC: ANHLAB 07:07
PROVIDERS: PCP Student in an Organized Health Care Education/Training Program; Visit Provider Obstetrics & Gynecology
DX: Z34.90 Encounter for supervision of normal pregnancy, unspecified, unspecified trimester (principal)
CPT/HCPCS: 36415; 85025; 86592; 86703; 86747; G0432

== ENCOUNTER 2024-09-29 10:19 | Outpatient (RCR) | payer BC, SELFPAY ==
--- NOTE | ~2024-09-29 | US_ITS ---
EXAMINATION: US OB limited DATE: 09/29/2024 12:03 INDICATION: Large for gestational age. Third trimester. TECHNIQUE: Real-time ultrasound of the pelvis was performed. COMPARISON: Ultrasound 03/11/2024 FINDINGS: There is a single fetus in vertex presentation. The placenta is anterior. heart rate is 162 be ats per minute (bpm). The amniotic fluid index is 10.7 cm, which is normal. IMPRESSION: 1. Single living fetus in vertex presentation. Reviewed, dictated and finalized at location B. NURSE
[2024-09-29 11:08] VITALS: BP 111/75; PULSE 87
== END 2024-11-06 16:46 | disposition home or self-care (01) ==
LOC: ANHOBOP 10:19
PROVIDERS: PCP Student in an Organized Health Care Education/Training Program; Visit Provider Obstetrics & Gynecology
DX: O36.63X0 Maternal care for excessive fetal growth, third trimester, not applicable or unspecified (principal); Z3A.38 38 weeks gestation of pregnancy
CPT/HCPCS: 59025; 76815

== ENCOUNTER 2024-10-05 18:46 | Inpatient (IN) | payer BC, SELFPAY ==
[2024-10-05] VITALS (12 sets, daily range): BP systolic 108–124; BP diastolic 72–85; PULSE 81–127; O2SAT 97–98; BMI 33.0
--- OUTSIDE RECORDS SUMMARY | 2024-10-05 18:52 | XMS_ITS | Clinical Summary ---
Author Organization [facility] Address [address] [place] [address]. [place], [place] [id number] [place] [id number] Care Team Providers Care Molded Parts Inspector Name Role Phone Valentin King Gomez MCLAUGHLIN Primary Care Provider + Allergies No known active allergies Medications fluticasone propionate 50 MCG/ACT nasal spray 1 spray by Nasal route daily. Active cholecalciferol 125 MCG (5000 UT) Tab Take 5,000 Units by mouth daily. Active Active Problems Problem Noted Date Diagnosed Date Nonintractable episodic headache, unspecified he adache type 12/08/2020 Vertigo 12/08/2020 Sinus pressure 12/08/2020 Chronic neck pain 12/08/2020 Encounters Date Type Department Care Team Description 08/14/2024 Scan HEALTH INFO SRVCS Scanned, [facility] (SCAN) from Last 3 Months Immunizations Name Administration Dates Next Due Influenza Adult (Generic) 06/09/2020 PFIZER COVID-19 (ORIGINAL FO RMULATION, PURPLE CAP) mRNA, LNP-S, PF, 30 MCG/0.3 ML DOSE 11/06/2020,10/06/2020 Tdap (Boostrix) 12/08/2020 Family History Medical History Relation Comments Hypertension Father Lung Cancer Maternal Grandfather Hyperlipidemia Maternal Grandmother Heart Disease Paternal Grandfather Hypertension Paternal Grandmother Relation Status Comments Father Alive Maternal Grandfather Maternal Grandmother Alive Paternal Grandfather Paternal Grandmother Social History Tobacco Use Types Packs/Day Years Used Date Smoking Tobacco: Never Smokeless Tobacco: Never Alcohol Use Standard Drinks/Week Comments Yes 1.7 (1 standard drink = 0.6 oz p ure alcohol) AUDIT-C Answer Date Recorded Q1: How often do you have a drink containing alc ohol? 2-4 times a month 12/08/2020 Q2: How many drinks containi ng alcohol do you have on a typical day when you are drinking? 1 or 2 12/08/2020 Q3: How often do you have si x or more drinks on one occasion? 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 Not on file Not on file Not on file Last Filed Vital Signs Vital Sign Reading Time Taken Comments Blood Pressure 106/62 12/08/2020 1:17 PM CDT Pulse 82 12/08/2020 1:17 PM CDT Temperature 36.8 ??C (98.3 ??F) 12/08/2020 1:17 PM CD T Respiratory Rate 16 12/08/2020 1:17 PM CDT Oxygen Saturation 98% 12/08/2020 1:17 PM CDT Inhaled Oxygen Concentration - - Weight 72.4 kg (159 lb 11.2 oz) 12/08/2020 1:17 PM CDT Height 165.1 cm (5' 5 ) 12/08/2020 1:17 PM CDT Body Mass Index 26.58 12/08/2020 1:17 PM CDT Plan of Treatment Health Maintenance Due Date Last Done Comments Cervical Cancer Screening Pa p Smear (Age 30 to 64) Every 3 Years 1991 Annual Physical 1994 PHQ-2 (Physician [place]) 2003 Hepatitis B Vaccines (1 of 3 - 19+ 3-dose series) 2010 Cervical Cancer Screening Pa p with HPV Testing (Age 30 to 64) Every 5 Years 2021 Cervical Cancer Screening wi th HPV 2021 COVID-19 Vaccine ( - 2023-2 5 season) 2024 11/06/2020, 10/06/2020 Influenza Adult (#1) 2024 06/09/2020 PHQ-2 (Physician [place]) 09/09/2024 DTaP, Tdap and Td Vaccines ( 2 - Td or Tdap) 12/08/2030 12/08/2020 Hepatitis C Completed 03/31/2024 HPV Vaccines Aged Out No longer eligi ble based on patient's age to complete this topic Meningococcal B Vaccine Aged Out No l onger eligible based on patient's age to complete this topic Meningococcal Vaccine Aged Out No marci veda eligible based on patient's age to complete this topic Pneumococcal Vaccine: Pediatrics (0 to 5 Years) and At-Risk Patients (6 to 64 Years) Aged Out No longer eligible b ased on patient's age to complete this topic RSV Immunizations Under 20 Months Aged Out No longer eligible b ased on patient's age to complete this topic Procedures Procedure Name Priority Date/Time Associated Diagnosis Comments OUTSIDE LAB (SCAN ORDER) 08/14/2024 OUTSIDE LAB (SCAN ORDER) 08/14/2024 OUTSIDE LAB (SCAN ORDER) 08/14/2024 HEP C SCANNED ORDERS Routine 03/31/2024 from Last 3 Months or Most Recently Relevant to Health Maintenance Results * OUTSIDE LAB (SCAN ORDER) (08/14/2024) Only the most recent of3 resultswithin the time period is included. 08/14/2024 [facility] Scanned SCANNING Final Resu lt * HEP C SCANNED ORDERS (03/31/2024) [facility] Scanned SCANNING Final Resu lt [facility] from Last 3 Months or Most Recently Relevant to Health Maintenance Insurance [facility] Care Teams Molded Parts Inspector Relationship Specialty Start Date End Date Valentin King DO [address] [place] [id number] PCP - General FAMILY PRACTICE 12/08/20
--- OUTSIDE RECORDS SUMMARY | 2024-10-05 18:52 | XMS_ITS | Clinical Summary ---
Author Organization [facility] Next audience Address [address] [place] [address] Care Team Providers Care Factory Helper Name Role Phone Valentin King DO Primary Care Provider + Source Comments [facility],non-owned Affiliates and Associated Physician Practices is amultiple site organization consisting of ambulatory clinics and hospital sitesin [place], [place], [place] and [place]. This disclosure is being madepursuant to the Care Everywhere program and may not contain all information available regarding this patient. Last updated 18.[facility] Next audience Allergies No known active allergies Medications * Be aware that medications may not be up to date on this document. Alwaysverify current medications with the patient. Medication Sig Dispensed Refills Start Date End Date Status Cetirizine HCl (ZYRTEC PO) Active norethindrone-ethinyl estradiol (NORTREL 0.5/35, 28,) 0.5-35 MG-MCG tablet Take 1 Tab by mouth once daily Active Social History Tobacco Use Types Packs/Day Years Used Date Smoking Tobacco: Never Assessed Sex and Gender Information Value Date Recorded Sex Assigned at Not on file Gender Identity Not on file Sexual Orientation Not on file Last Filed Vital Signs Vital Sign Reading Time Taken Comments Blood Pressure 120/72 10/02/2016 5:58 PM SALESPERSON PARTS Pulse 83 10/02/2016 5:58 PM SALESPERSON PARTS Temperature 36.6 ??C (97.9 ??F) 10/02/2016 5:58 PM CS T Respiratory Rate 16 10/02/2016 5:58 PM SALESPERSON PARTS Oxygen Saturation - - Inhaled Oxygen Concentration - - Weight 65.8 kg (145 lb) 10/02/2016 5:58 PM SALESPERSON PARTS Height 165.1 cm (5' 5 ) 10/02/2016 5:58 PM SALESPERSON PARTS Body Mass Index 24.13 10/02/2016 5:58 PM SALESPERSON PARTS Plan of Treatment Health Maintenance Due Date Last Done Comments PAP SMEAR 1991 HIV SCREENING 2006 HEPATITIS C SCREENING 10/15/2009 DTAP/TDAP/TD VACCINES (1 - Tdap) 2010 HEPATITIS B VACCINE (1 of 3 - 19+ 3-dose series) 2010 COVID-19 VACCINE ( - 2023-2 5 season) 2024 INFLUENZA VACCINE (#1) 2024 DEPRESSION SCREENING 09/09/2024 ZOSTER VACCINE (1 of 2) 2041 HIB VACCINE Aged Out No longer eligi ble based on patient's age to complete this topic HPV VACCINE Aged Out No longer eligi ble based on patient's age to complete this topic MENINGOCOCCAL (Group B) VACCINE Aged Out No longer eligible based on patient's age to complete this topic MENINGOCOCCAL VACCINE Aged Out No marci veda eligible based on patient's age to complete this topic PNEUMOCOCCAL VACCINE Aged Out No long er eligible based on patient's age to complete this topic Care Teams Factory Helper Relationship Specialty Start Date End Date Valentin King DO [address] [place] [id number] PCP - General 09/19/21
--- OUTSIDE RECORDS SUMMARY | 2024-10-05 18:52 | XMS_ITS | Referral Summary ---
Author Organization [facility] Address [address] [place] [address] Care Team Providers Care Chin Strap Sewer Name Role Phone Valentin King DO Primary Care Provider + Source Comments [facility],non-owned Affiliates and Associated Physician Practices is amultiple site organization consisting of ambulatory clinics and hospital sitesin [place], [place], [place] and [place]. This disclosure is being madepursuant to the Care Everywhere program and may not contain all information available regarding this patient. Last updated 18.[facility] Allergies No known active allergies Medications * [...] Comments Blood Pressure 120/72 10/02/2016 5:58 PM ASSISTANT IN NURSING Pulse 83 10/02/2016 5:58 PM ASSISTANT IN NURSING Temperature 36.6 ??C (97.9 ??F) 10/02/2016 5:58 PM CS T Respiratory Rate 16 10/02/2016 5:58 PM ASSISTANT IN NURSING Oxygen Saturation - - Inhaled Oxygen Concentration - - Weight 65.8 kg (145 lb) 10/02/2016 5:58 PM ASSISTANT IN NURSING Height 165.1 cm (5' 5 ) 10/02/2016 5:58 PM ASSISTANT IN NURSING Body Mass Index 24.13 10/02/2016 5:58 PM ASSISTANT IN NURSING Plan of Treatment Not on file Care Teams Chin Strap Sewer Relationship Specialty Start Date End Date Valentin King DO [address] [place], [place] [id number] PCP - General 09/19/21
--- OUTSIDE RECORDS SUMMARY | 2024-10-05 18:52 | XMS_ITS | Clinical Summary ---
Author Organization [facility] Address [address] [place] [phone] Phone Care Team Providers Care Java Web Architect Name Role Phone Not Found, Stl Primary Care Provider Unavailabl e Encounters Date Type Department Care Team Description 09/30/2024 External Device Data STL ABSTRACTION Provider, Abstract 09/30/2024 External Device Data STL ABSTRACTION Provider, Abstract 09/21/2024 7:15 AM BENEFITS COUNSELOR - 09/21/2024 11:59 PM BENEFITS COUNSELOR Hospital Encounter [facility] [address] [place] [phone] Sonido Jacobo MD Discharge Disposition: Home or Self Care 08/24/2024 9:29 AM BENEFITS COUNSELOR - 08/24/2024 11:59 PM BENEFITS COUNSELOR Hospital Encounter [facility] Jeremias Mayorga [address] [place] [phone] Sonido Jacobo MD Discharge Disposition: Home or Self Care from Last 3 Months Social History Tobacco Use Types Packs/Day Years Used Date Smoking Tobacco: Never Assessed Comments Unknown Sex and Gender Information Value Date Recorded Sex Assigned at Not on file Legal Sex Female 1:39 PM CDT Gender Identity Not on file Sexual Orientation Not on file Plan of Treatment Health Maintenance Due Date Last Done Comments HEPATITIS B VACCINES (1 of 3 - 19+ 3-dose series) 2010 CERVICAL CANCER SCREENING 2021 INFLUENZA VACCINE (#1) 2024 DTAP/TDAP/TD VACCINES (2 - T d or Tdap) 12/08/2030 12/08/2020 HPV VACCINES Aged Out No longer eligi ble based on patient's age to complete this topic PNEUMOCOCCAL VACCINE 0-64 YEARS Aged Out No longer eligible based on patient's age to complete this topic Procedures Procedure Name Priority Date/Time Associated Diagnosis Comments US OB FOLLOW UP PER FETUS Routine 09/21/2024 7:36 AM BENEFITS COUNSELOR Large for dates Encounter for ultrasound to assess growth US OB FOLLOW UP PER FETUS Routine 08/24/2024 9:53 AM BENEFITS COUNSELOR Uterine size date discrepancy Encounter for ultrasound to assess growth from Last 3 Months Results * US OB FOLLOW UP PER FETUS (09/21/2024 7:36 AM BENEFITS COUNSELOR) Only the most recent of2 resultswithin the time period is included. Anatomical Region Laterality Modality Pelvis Ultrasound 09/21/2024 7:20 AM BENEFITS COUNSELOR Narrative 09/21/2024 7:57 AM BENEFITS COUNSELOR STL FOLLOW UP ----- Pat. Name: MACRINA BALBUENA Study Date: 09/21/2024 7:20am Pat. NO: [id number] Referring ??: SONIDO JACOBO MD Site: [place] Vendor Manager: Tarah Paz RDMS : 1990 Age: 33 ----- INDICATION ----- Screening Follow-Up CODING ----- Diagnoses ? Z3A.37: Weeks of gestation ?Z36.2: Encounter for other screening follow-up Procedures ?92321: Ultrasound, uterus, real time with image documentation, follow up, transabdominal ?approach per fetus HISTORY ----- OB History ? 2. Para 1 ?T1L1 METHOD ----- Transabdominal ultrasound examination ----- Jacobsen . Number of fetuses: 1 DATING ----- Cycle: regular cycle GA by prior assessment 37 w + 0 d SUELLEN by prior assessment: 10/12/2024 Ultrasound examination on: 09/21/2024 GA by U/S based upon: AC, BPD, EFW, Femur, HC GA by U/S 38 w + 6 d SUELLEN by U/S: 09/29/2024 Method of dating: Restore dating from previous exam Assigned: based on stated SUELLEN, selected on 05/25/2024 Assigned GA 37 w + 0 d Assigned SUELLEN: 10/12/2024 BIOMETRY ----- BPD ?93.2 ? mm ?37w 6d ?86% ?Hadlock OFD ?118.7 ?mm ?-/- ?96% ?Danitza HC ? 337.6 ?mm ?38w 5d ?67% ?Hadlock AC ? 353.5 ?mm ?39w 2d ?98% ?Hadlock Femur ?75.4 ? mm ?38w 4d ?85% ?Hadlock HC / AC ?0.96 ? 20% ?Nicolaides Weight Calculation: EFW ? 3,619 ? g ? 40w 0d ?93% ?Hadlock EFW (lb,oz) ? 8 lb 0 ?oz EFW by ?Hadlock ([id number]) Extremities / Bony Struc Biometry: FL / BPD ?0.81 FL / HC ? 0.22 FL / AC ? 0.21 GENERAL EVALUATION ----- Cardiac activity present. FHR 136 bpm. movements: present. Presentation: cephalic Placenta: Placental site: anterior Umbilical cord: Cord vessels: 3 vessel cord. Insertion site: placental insertion: normal Amniotic fluid: Amount of AF: normal amount. MVP 3.5 cm. DAYANARA 7.3 cm. Q1 0.0 cm, Q2 3.5 cm, Q3 2.3 cm, Q4 1.5 cm ANATOMY ----- The following structures appear normal: Head / Neck ? Cranium. Cavum septi pellucidi. Heart / Thorax ?RVOT view. ?Diaphragm. Abdomen ? Stomach. Kidneys. Bladder. GROWTH OVERVIEW ----- Exam date ? GA ?BPD (mm) ? HC (mm) ?AC (mm) ? FL (mm) ?HL (mm) ?EFW (g) 05/25/2024 ?20w 0d ?48.6 ?78% ?178.9 ? 58% ?152.9 ?61% ?34.1 ?68% ?33.4 ?92% ?363 ? 77% 08/24/2024 ?33w 0d ?84.5 ?74% ?313.4 ? 69% ?312.0 ?95% ?64.7 ?49% ? 2,457 ? 85% 09/21/2024 ?37w 0d ?93.2 ?86% ?337.6 ? 67% ?353.5 ?98% ?75.4 ?85% ? 3,619 ? 93% COMMENT ----- Patient's name and date of were verified by the aerial hurricane hunter prior to the exam IMPRESSION ----- -Single living fetus with a gestational age of 37w 0d based on the reported dates. -cephalic presentation. -The EFW is 3619 g which is at the 93%. The abdominal circumference is at the 98%. -Unremarkable limited anatomy noted to extent of ultrasound views. -The amniotic fluid is normal for gestational age. (DAYANARA of 7.3 cm, MVP of 3.5 cm) -The placenta is anterior Further sonogram follow up as clinically indicated Thank you for allowing us to participate in the care of this patient. Procedure Note Audrey Dorado MD - 09/21/2024 STL FOLLOW UP ----- Pat. Name:Lucina BALBUENA Date:09/21/2024 7:20am Pat. NO: [id number] MD:SONIDO JACOBO MD [facility]Tarah P[facility] RDMS :1990Age:33 ----- INDICATION ----- Screening Follow-Up CODING ----- Diagnoses Z3A.37: Weeks of gestation Z36.2: Encounter for other screeningfollow-up Procedures [id number]: Ultrasound, uterus, real time withimage documentation, follow up, transabdominal approach per fetus HISTORY ----- OB History 2. Para 1 T1L1 METHOD ----- Transabdominal ultrasound examination ----- Jacobsen . Number of fetuses: 1 DATING ----- Cycle:regular cycle GA by prior enuyunxsid36 w + 0 d SUELLEN by prior assessment:10/12/2024 Ultrasound examination on:09/21/2024 GA by U/S based upon:AC, BPD, EFW, Femur, HC GA by U/S38 w + 6 d SUELLEN by U/S:09/29/2024 Method of dating:Restore dating from previous exam Assigned:based on stated SUELLEN, selected on 05/25/2024 Assigned GA37 w + 0 d Assigned SUELLEN:10/12/2024 BIOMETRY ----- BPD 93.2 mm 37w 6d 86%Hadlock OFD 118.7 mm -/- 96%Danitza HC 337.6 mm 38w 5d 67%Hadlock AC 353.5 mm 39w 2d 98%Hadlock Femur 75.4 mm 38w 4d 85%Hadlock HC / AC 0.96 20%Nicolaides Weight Calculation: EFW 3,619 g 40w 0d93% Hadlock EFW (lb,oz) 8 lb 0 oz EFW by Hadlock ([id number]-FL) Extremities / Bony Struc Biometry: FL / BPD 0.81 FL / HC 0.22 FL / AC 0.21 GENERAL EVALUATION ----- Cardiac activity present. FHR 136 bpm. movements: present.Presentation: cephalic Placenta: Placental site: anterior Umbilical cord: Cord vessels: 3 vessel cord. Insertion site: placentalinsertion: normal Amniotic fluid: Amount of AF: normal amount. MVP 3.5 cm. DAYANARA 7.3 cm. Q10.0 cm, Q2 3.5 cm, Q3 2.3 cm, Q4 1.5 cm ANATOMY ----- The following structures appear normal: Head / Neck Cranium. Cavum septi pellucidi. Heart / Thorax RVOT view. Diaphragm. Abdomen Stomach. Kidneys. Bladder. GROWTH OVERVIEW ----- Exam date GA BPD (mm) HC (mm) AC (mm) FL(mm) HL (mm) EFW (g) 05/25/2024 20w 0d 48.6 78% 178.9 58% 152.9 61%34.1 68% 33.4 92% 363 77% 08/24/2024 33w 0d 84.5 74% 313.4 69% 312.0 95%64.7 49% 2,457 85% 09/21/2024 37w 0d 93.2 86% 337.6 67% 353.5 98%75.4 85% 3,619 93% COMMENT ----- Patient's name and date of were verified by the aerial hurricane hunter prior tothe exam IMPRESSION ----- -Single living fetus with a gestational age of 37w 0d based on thereported dates. -cephalic presentation. -The EFW is 3619 g which is at the 93%. The abdominal circumference is atthe 98%. -Unremarkable limited anatomy noted to extent of ultrasound views. -The amniotic fluid is normal for gestational age. (DAYANARA of 7.3 cm, MVP of3.5 cm) -The placenta is anterior Further sonogram follow up as clinically indicated Thank you for allowing us to participate in the care of this patient. us Sonido Jacobo MD US ORDERABLES Final Result from Last 3 Months Insurance BCBS BLUE ACCESS/TRUE BLUE PPO Care Teams Java Web Architect Relationship Specialty Start Date End Date Not Found, Stl NO ADDRESS ON FILE PCP - General 04/24/21
--- OUTSIDE RECORDS SUMMARY | 2024-10-05 18:52 | XMS_ITS | Patient Health Summary ---
Author Organization [facility] Address [address] [place] [address] Care Team Providers Care Intelligent Systems Engineer Name Role Phone Valentin King DO Primary Care Provider + Note from [facility],non-owned Affiliates and Associated Physician Practices is amultiple site organization consisting of ambulatory clinics and hospital sitesin [place], [place], [place] and [place]. This disclosure is being madepursuant to the Care Everywhere program and may not contain all information available regarding this patient. Last updated 18.[facility] Allergies No known active allergies Medications * Be aware that medications may not be up to date on this document. Alwaysverify current medications with the patient. * Cetirizine HCl (ZYRTEC PO) * norethindrone-ethinyl estradiol (NORTREL 0.5/35, 28,) 0.5-35 MG-MCG tablet Take 1 Tab by mouth once daily Social History Tobacco Use Types Packs/Day Years Used Date Smoking Tobacco: Never Assessed Sex and Gender Information Value Date Recorded Sex Assigned at Not on file Gender Identity Not on file Sexual Orientation Not on file Last Filed Vital Signs Vital Sign Reading Time Taken Comments Blood Pressure 120/72 10/02/2016 5:58 PM ENTRY LEVEL PROJECT COORDINATOR Pulse 83 10/02/2016 5:58 PM ENTRY LEVEL PROJECT COORDINATOR Temperature 36.6 ??C (97.9 ??F) 10/02/2016 5:58 PM CS T Respiratory Rate 16 10/02/2016 5:58 PM ENTRY LEVEL PROJECT COORDINATOR Oxygen Saturation - - Inhaled Oxygen Concentration - - Weight 65.8 kg (145 lb) 10/02/2016 5:58 PM ENTRY LEVEL PROJECT COORDINATOR Height 165.1 cm (5' 5 ) 10/02/2016 5:58 PM ENTRY LEVEL PROJECT COORDINATOR Body Mass Index 24.13 10/02/2016 5:58 PM ENTRY LEVEL PROJECT COORDINATOR Care Teams Intelligent Systems Engineer Relationship Specialty Start Date End Date Valentin King DO [address] [place] [id number] PCP - General 09/19/21
--- NOTE | 2024-10-05 19:14 | LDADM ---
This patient, Jaida Balbuena, was admitted to Labor/Delivery/Recovery 106 on 10/05/24 at 18:46. Plans for labor, pain management and were discussed with patient. Patient/family oriented to hospital policies and general routines including ID bracelet, bed and alarms, visiting hours, pain management, procedures, bathroom and other care routines, personal items, smoking policy, room service/diet and guest tray routines, security routines, and visiting hours. Patient/Family are encouraged to report perceived risks to care and to ask questions if they do not understand what they are told or what they should do. See OBIX for further documentation.
[2024-10-05 19:59] LABS: Basophils Percent Auto 0.5 % (0.2-1.2); Eosinophils Absolute Auto 0.1 K/mm3 (0-0.3); Eosinophils Percent Auto 1.5 % (0-4.4); Hemoglobin 12.4 g/dL (12.0-15.0); Immature Granulocyte Absolute 0.02 K/mm3 (0.00-0.031); Immature Granulocyte Percent A 0.2 % (0-0.5); Lymphocytes Absolute Auto 2.39 K/mm3 (0.9-3.2); Mean Corpuscular HGB Conc 33.5 g/dl (32-36); Mean Corpuscular Hemoglobin 30.8 pg (26-34); Mean Platelet Volume 9.6 fl (7.4-10.4); Monocytes Absolute Auto 0.8 K/mm3 (0.1-0.6); Monocytes Percent Auto 9.6 % (2.6-8.5); Neutrophils Absolute Auto 4.9 K/mm3 (1.3-6.7); Neutrophils Percent Auto 59.2 % (45.5-73.1); Platelet Count Result 201 k/mm3 (150-375); Red Blood Count 4.02 M/mm3 (4.2-5.4); Red Cell Distribution Width 13.2 % (11.5-14.5); White Blood Count 8.2 K/mm3 (4.5-10.0)
[2024-10-05] MEDS: miSOPROStol 25 MCG TABLET BUCCAL (20:15)
[2024-10-05 20:49] LABS: HIV 1/2 Ab P24 Ag Result Negative (Negative)
[2024-10-05 20:58] LABS: Rapid Plasma Reagin Non-Reactive (NonReactive)
[2024-10-06] VITALS (85 sets, daily range): BP systolic 65–129; BP diastolic 34–92; PULSE 59–111; RESP 16–18; TEMP 36.6–37.1; O2SAT 92–100
[2024-10-06] MEDS: LACTATED RINGERS 500 ML 999 ML IV CONT (03:57)
--- NOTE | 2024-10-06 04:41 | WPDANESEPP ---
Anes - Eval Pre Procedure Procedure: Labor Epidural Date/Time: 10/06/24 04:41 Surgeon: Denita Preop Diagnosis: Labor Pain Pre Op Diagnosis: IOL Patient Data Age: 33 Gender: F Height: 1.65 m Weight: 90 kg Last Vital Signs Pulse 77 10/06/24 04:30 BP 116/76 10/06/24 04:30 Pulse Ox 96 10/06/24 04:38 O2 Del Method Room Air 10/05/24 19:48 Allergies Allergy/AdvReac Type Severity Reaction Status Date / Time No Known Allergies Allergy Verified 10/05/24 19:47 Home Medications ?Medication ?Instructions ?Recorded ?Confirmed ?Type cetirizine 10 mg tablet (Zyrtec) 10 mg PO DAILY PRN Allergy Symptoms 01/23/21 10/05/24 History vitamin#30 30 mg iron-10 1 cap PO DAILY 07/16/24 10/05/24 History mg iron-folic acid 1 mg-omg3 capsule Laboratory Tests 10/05/24 19:52 WBC 8.2 K/mm3 (4.5-10.0) RBC 4.02 L M/mm3 (4.2-5.4) Hgb 12.4 g/dL (12.0-15.0) Hct 37.0 % (37.0-47.0) MCV 92.0 fl (80-100) MCH 30.8 pg (26-34) MCHC 33.5 g/dl (32-36) RDW 13.2 % (11.5-14.5) Plt Count 201 k/mm3 (150-375) MPV 9.6 fl (7.4-10.4) Immature Gran % (Auto) 0.2 % (0-0.5) Neut % (Auto) 59.2 % (45.5-73.1) Lymph % (Auto) 29.0 % (18.3-44.2) Pierce % (Auto) 9.6 H % (2.6-8.5) Eos % (Auto) 1.5 % (0-4.4) Baso % (Auto) 0.5 % (0.2-1.2) Lymph # (Auto) 2.39 K/mm3 (0.9-3.2) Pierce # (Auto) 0.8 H K/mm3 (0.1-0.6) Eos # (Auto) 0.1 K/mm3 (0-0.3) Baso # (Auto) 0.0 K/mm3 (0.0-0.1) Abs Immat Gran (auto) 0.02 K/mm3 (0.00-0.031) Absolute Neuts (auto) 4.9 K/mm3 (1.3-6.7) Absolute Nucleated RBC 0.000 K/mm3 (0.0-0.012) Nucleated RBC % 0.0 % (0.0-0.2) RPR Non-reactive (NonReactive) HIV 1&2 Ab/P24 Ag 4thGn Negative (Negative) Blood Type O Positive Antibody Screen Negative : gestational age (SUELLEN 10/12/24, ) Patient hx anesthesia problems: none Family hx anesthesia problems: none Results Review: All pre-operative results and documents have been reviewed as part of the pre-operative evaluation. [facility] Past Medical History Medical History Vaginal delivery and not yet delivered Overweight (BMI 25.0-29.9) Seasonal allergies Family History Family History Father Hypertension Family history of elevated blood lipids Grandparent Family history of elevated blood lipids Cerebrovascular accident Social History Social History Smoking status: Never smoker Second hand tobacco smoke exposure: No Alcohol intake: current Alcohol use details: Rarely Substance use: unknown Do You Feel Safe in your Home?: Yes Lack of Transportation: No Lack of Food: Never True Current Housing: I Have Housing Concerned About Future Housing: No Difficulty Paying Gas/Electric Bills: No Difficulty Paying for Meds: No Currently Unemployed: No Education: Bachelor's Degree Difficulty w/ Childcare or Family Care: No Occupation/Education: occupation Gender identity (if verbalized by the patient): Female Sexual Orientation (if Verbalized by the Patient): Straight or Heterosexual Spiritual care concerns: No Exam Day of Procedure 10/06/24 04:41 Patient weight: normal Heart: regular rate and rhythm Lungs: normal air movement Airway: Mallampati scale class II Neurological: alert and oriented
[2024-10-06] MEDS: PHENYLEPHRINE 1,000 MCG/10 ML SYRINGE 100 MCG IV PUSH (05:12)
[2024-10-06] MEDS: ONDANSETRON INJ 4 MG/2 ML VIAL IV PUSH (06:30)
[2024-10-06] MEDS: OXYTOCIN 30 UNITS/NS 500 ML 30 UNITS/500 ML BAG IV CONT (06:43)
[2024-10-06] MEDS: LACTATED RINGERS 1,000 ML 125 ML IV CONT (09:49)
[2024-10-06] MEDS: OXYTOCIN 30 UNITS/NS 500 ML 30 UNITS/500 ML BAG 125 UNITS IV CONT (11:49)
--- NOTE | 2024-10-06 13:10 | PM.IMHP ---
H&P: HPI History of Present Illness Date/Time: 10/06/24 13:10 Chief Complaint: Induction of labor Narrative: She is a 33y/o at 39 weeks by LMP 01/06/24 with EDC 10/12/24. PNC significant for LGA. She has been counseled regarding induction versus spontaneous labor and has opted for induction of labor. Review of Systems Review of Systems: All systems reviewed & are unremarkable except as noted in HPI and below Constitutional: Constitutional: Reports no additional constitutional complaints and Denies headache(s) Eyes: Eyes: Denies spots in vision ENT: Reports system reviewed and no additional complaints, except as documented and Denies headache(s) Cardiovascular: Cardiovascular: Denies chest pain and Denies dyspnea Respiratory: Respiratory: Denies dyspnea Gastrointestinal: Gastrointestinal: Reports no additional gastrointestinal complaints Genitourinary: Genitourinary: Reports amenorrhea Musculoskeletal: Musculoskeletal: Reports no additional musculoskeletal complaints Integumentary/Breasts: Skin/Breast: Denies breast mass and Denies rash Neurologic: Denies headache(s) Psychiatric: Psychiatric: Reports no additional psychiatric complaints [facility] Past Medical History Medical History Vaginal delivery and not yet delivered Overweight (BMI 25.0-29.9) Seasonal allergies Family History Family History Father Hypertension Family history of elevated blood lipids Grandparent Family history of elevated blood lipids Cerebrovascular accident Social History Social History Smoking status: Never smoker Second hand tobacco smoke exposure: No Alcohol intake: current Alcohol use details: Rarely Substance use: unknown Do You Feel Safe in your Home?: Yes Lack of Transportation: No Lack of Food: Never True Current Housing: I Have Housing Concerned About Future Housing: No Difficulty Paying Gas/Electric Bills: No Difficulty Paying for Meds: No Currently Unemployed: No Education: Bachelor's Degree Difficulty w/ Childcare or Family Care: No Occupation/Education: occupation Gender identity (if verbalized by the patient): Female Sexual Orientation (if Verbalized by the Patient): Straight or Heterosexual Spiritual care concerns: No Meds Home Medications and Allergies Home Medications ?Medication ?Instructions ?Recorded ?Confirmed ?Type cetirizine 10 mg tablet (Zyrtec) 10 mg PO DAILY PRN Allergy Symptoms 01/23/21 10/05/24 History vitamin#30 30 mg iron-10 1 cap PO DAILY 07/16/24 10/05/24 History mg iron-folic acid 1 mg-omg3 capsule Allergies Allergy/AdvReac Type Severity Reaction Status Date / Time No Known Allergies Allergy Verified 10/05/24 19:47 Vital Signs Vital Signs - 24 hr 10/05/24 19:04 10/05/24 19:05 10/05/24 19:09 Temperature Pulse Rate 99 Respiratory Rate Blood Pressure 124/83 Pulse Oximetry 98 97 Oxygen Delivery 10/05/24 19:14 10/05/24 19:19 10/05/24 19:48 Temperature Pulse Rate Respiratory Rate Blood Pressure Pulse Oximetry 97 98 Oxygen Delivery Room Air 10/05/24 20:30 10/05/24 21:00 10/05/24 21:30 Temperature Pulse Rate 86 82 127 H Respiratory Rate Blood Pressure 120/72 116/77 118/85 Pulse Oximetry Oxygen Delivery 10/05/24 22:00 10/05/24 22:30 10/05/24 23:00 Temperature Pulse Rate 82 86 86 Respiratory Rate Blood Pressure 109/77 108/72 108/74 Pulse Oximetry Oxygen Delivery 10/05/24 23:30 10/06/24 00:00 10/06/24 00:30 Temperature Pulse Rate 81 80 78 Respiratory Rate Blood Pressure 112/72 111/77 116/76 Pulse Oximetry Oxygen Delivery 10/06/24 01:00 10/06/24 01:30 10/06/24 02:00 Temperature Pulse Rate 86 73 73 Respiratory Rate Blood Pressure 114/79 113/73 104/66 Pulse Oximetry Oxygen Delivery 10/06/24 02:30 10/06/24 03:00 10/06/24 03:30 Temperature Pulse Rate 89 83 86 Respiratory Rate Blood Pressure 112/82 124/78 117/81 Pulse Oximetry Oxygen Delivery 10/06/24 03:58 10/06/24 04:00 10/06/24 04:03 Temperature Pulse Rate 82 Respiratory Rate Blood Pressure 115/78 Pulse Oximetry 97 97 Oxygen Delivery 10/06/24 04:08 10/06/24 04:13 10/06/24 04:18 Temperature Pulse Rate Respiratory Rate Blood Pressure Pulse Oximetry 97 96 96 Oxygen Delivery 10/06/24 04:23 10/06/24 04:28 10/06/24 04:30 Temperature Pulse Rate 77 Respiratory Rate Blood Pressure 116/76 Pulse Oximetry 96 95 Oxygen Delivery 10/06/24 04:33 10/06/24 04:38 10/06/24 04:43 Temperature Pulse Rate Respiratory Rate Blood Pressure Pulse Oximetry 97 96 98 Oxygen Delivery 10/06/24 04:47 10/06/24 04:48 10/06/24 04:50 Temperature Pulse Rate 96 87 Respiratory Rate Blood Pressure 122/92 H 110/74 Pulse Oximetry 98 97 Oxygen Delivery 10/06/24 04:52 10/06/24 04:55 10/06/24 04:56 Temperature Pulse Rate 89 97 Respiratory Rate Blood Pressure 111/71 79/50 L Pulse Oximetry 98 Oxygen Delivery 10/06/24 04:57 10/06/24 04:58 10/06/24 05:00 Temperature Pulse Rate 87 74 59 L Respiratory Rate Blood Pressure 77/42 L 65/34 L 78/58 L Pulse Oximetry 100 Oxygen Delivery 10/06/24 05:02 10/06/24 05:03 10/06/24 05:05 Temperature Pulse Rate 67 72 90 Respiratory Rate Blood Pressure 112/74 104/69 97/41 L Pulse Oximetry 99 Oxygen Delivery 10/06/24 05:07 10/06/24 05:10 10/06/24 05:12 Temperature Pulse Rate 77 67 82 Respiratory Rate Blood Pressure 102/63 79/43 L 107/72 Pulse Oximetry 97 Oxygen Delivery 10/06/24 05:15 10/06/24 05:17 10/06/24 05:20 Temperature Pulse Rate 81 81 75 Respiratory Rate Blood Pressure 105/68 87/54 L 104/74 Pulse Oximetry 97 97 Oxygen Delivery 10/06/24 05:22 10/06/24 05:25 10/06/24 05:27 Temperature Pulse Rate 79 83 74 Respiratory Rate Blood Pressure 95/64 L 82/44 L 106/79 Pulse Oximetry 98 Oxygen Delivery 10/06/24 05:30 10/06/24 05:35 10/06/24 05:40 Temperature Pulse Rate 76 79 83 Respiratory Rate Blood Pressure 105/71 98/67 L 87/58 L Pulse Oximetry 98 100 94 Oxygen Delivery 10/06/24 05:45 10/06/24 05:50 10/06/24 05:55 Temperature Pulse Rate 77 81 Respiratory Rate Blood Pressure 105/71 102/78 Pulse Oximetry 92 98 100 Oxygen Delivery 10/06/24 06:00 10/06/24 06:05 10/06/24 06:10 Temperature Pulse Rate 89 86 Respiratory Rate Blood Pressure 99/74 L 91/69 L Pulse Oximetry 93 100 97 Oxygen Delivery 10/06/24 06:15 10/06/24 06:20 10/06/24 06:25 Temperature Pulse Rate 86 Respiratory Rate Blood Pressure 96/67 L Pulse Oximetry 97 99 97 Oxygen Delivery 10/06/24 06:30 10/06/24 06:35 10/06/24 06:40 Temperature Pulse Rate 98 85 Respiratory Rate Blood Pressure 91/69 L 93/67 L Pulse Oximetry 99 92 98 Oxygen Delivery 10/06/24 06:45 10/06/24 06:50 10/06/24 06:55 Temperature Pulse Rate 90 Respiratory Rate Blood Pressure 97/71 L Pulse Oximetry 98 97 97 Oxygen Delivery 10/06/24 07:00 10/06/24 07:05 10/06/24 07:10 Temperature Pulse Rate 73 76 Respiratory Rate Blood Pressure 103/66 105/73 Pulse Oximetry 94 99 93 Oxygen Delivery 10/06/24 07:15 10/06/24 07:20 10/06/24 07:25 Temperature Pulse Rate 97 Respiratory Rate Blood Pressure 109/79 Pulse Oximetry 97 99 97 Oxygen Delivery 10/06/24 07:30 10/06/24 08:00 10/06/24 08:10 Temperature 97.9 F Pulse Rate 87 86 Respiratory Rate 18 Blood Pressure 106/83 105/68 Pulse Oximetry 95 Oxygen Delivery 10/06/24 08:30 10/06/24 09:00 10/06/24 09:30 Temperature Pulse Rate 79 89 82 Respiratory Rate Blood Pressure 101/63 104/71 102/71 Pulse Oximetry Oxygen Delivery 10/06/24 10:00 10/06/24 10:30 10/06/24 11:00 Temperature 98.2 F Pulse Rate 75 84 98 Respiratory Rate Blood Pressure 89/52 L 121/81 129/84 Pulse Oximetry Oxygen Delivery 10/06/24 11:06 10/06/24 11:30 10/06/24 12:01 Temperature 98.8 F Pulse Rate 94 81 Respiratory Rate Blood Pressure 103/56 L 106/75 Pulse Oximetry Oxygen Delivery 10/06/24 12:15 10/06/24 12:30 10/06/24 12:45 Temperature Pulse Rate 81 86 90 Respiratory Rate Blood Pressure 104/60 111/79 110/73 Pulse Oximetry Oxygen Delivery 10/06/24 13:00 Temperature Pulse Rate 82 Respiratory Rate Blood Pressure 99/60 L Pulse Oximetry Oxygen Delivery Exam Const: General: no acute distress Eyes: General: appearance normal, both eyes and all related structures Resp: Effort & Inspection: normal respiratory effort Cardio: Rate: regular rate GI: Other: Gravid no fundal tenderness no right upper quadrant pain Skin: General skin exam: no rashes or lesions noted Neuro: Cognition (Neuro): normal cognition Extrem: General: normal to inspection Psych: Mental Status: mental status grossly normal H&P: Results Labs Labs: Short CBC 10/05/24 Range/Units 19:52 WBC 8.2 (4.5-10.0) K/mm3 Hgb 12.4 (12.0-15.0) g/dL Hct 37.0 (37.0-47.0) % Plt Count 201 (150-375) k/mm3 Assessment and Plan Assessment and plan (1) Encounter for induction of labor: Code(s): Z34.90 - Encounter for supervision of normal , unspecified, unspecified trimester Status: Acute Assessment and Plan: 1. Admit 2. Induction of labor with Cytotec and then Pitocin.
--- NOTE | 2024-10-06 13:10 | PM.OBPNLAB ---
Pain Control Date/time seen: 10/06/24 0810 Comments: Cat 1, ctx q 3, Cervix /-2, AROM clear. Continue Pitocin.
--- NOTE | 2024-10-06 13:10 | PM.OBPRVD ---
OB - Vaginal Delivery Note Procedure Delivery date: 10/07/24 Events: Macrosomia Induction method: Per Misoprostol Protocol Delivery augmentation: Rupture of Membranes and Pitocin Delivery monitor: External FHT Route of delivery: Episiotomy description: Left Mediolateral Delivery repair: vicryl (3.0 vicryl) Specimen: No Quantitative Blood Loss (ml): 250 Anesthesia type: Epidural Disposition: Floor Complications: Other complications (Shoulder dystocia- 50 seconds) Narrative: She was admitted for [facility]. She received one dose of cytotec 25ug. She progressed to early labor. Pitocin was started. She had epidural placed on request. She progressed to complete and delivered a female infant. Left mediolateral episiotomy performed. She was placed in Modified [place] after shoulder dystocia noted. Suprapubic pressure was applied. Anterior shoulder and compound left hand was delivered. The rest of the was delivered and placed on maternal abdomen vigorously crying. Nose and mouth suctioned. Pitocin started. Placenta delivered spontaneously and intact. The episiotomy was repaired with 3.0 vicryl. She tolerated procedure well. [place] Baby Date of : 10/06/24 Time of : 11:11 Gestational Age by Date: 39 gender: Female Weight (pounds): 8 Weight (ounces): 12 presentation: vertex position: Left Occiput Anterior Placenta delivery description: Spontaneous Cord Vessel Description: 3 Vessels and Clamped/Cut score one minute: 8 score five minutes: 9
[2024-10-06] MEDS: BENZOCAINE 20% AER SPR (*SP) 56 GM CAN 1 SPRAY TOPICAL (13:57)
[2024-10-06] MEDS: WITCH HAZEL 40 PADS 1 PAD TOPICAL (13:57)
[2024-10-06] MEDS: IBUPROFEN 600 MG TABLET PO (13:57)
--- NOTE | 2024-10-06 14:10 | OBPPTRN ---
Patient transferred to post room #290 via wheelchair. Support person present. Oriented to unit, room, information board, rooming in, admission packet and security measures. Patient verbalizes understanding.
--- NOTE | 2024-10-06 16:45 | PC.NURSE ---
Primary RN requested feeding assistance because baby hasn't eaten in 4 hours. There have been visitors and mom has been a little reluctant to wake baby. We unwrapped baby but mom decided she wanted to try to use the bathroom first so we left baby loosely wrapped and she voided and did heather care. Baby was more awake when we placed her skin to skin with mom. She made a few attempts at opening her mouth but didn't present with a wide gape. Mom held her in cross cradle and knew how to try for an asymmetrical latch. She handles baby and her breast well. Baby held the nipple in her mouth for a minute or two and then got fussy. Mom was very quick to cease attempting at breast and instead moved baby to be skin to skin. Discussed with mom the options we can try. She opted to begin pumping for stimulation and offer baby some formula now. Instructions given on cleaning, care, usage, that there should be no pain, pumping schedule for milk production, collection, and storage of human milk. Patient was assessed for correct placement, flange size, to pump for comfort and nipple stretching/stimulation for adequate milk production every 3 hours (8 times in 24 hours) or every time that baby does not effectively breastfeed. Dad gave baby the bottle while mom pumped. She breastfed and pumped with her first baby and is very comfortable with the variety of feeding methods. She would like to attempt at breast but wants the option to quickly move to pumping and supplementing if she and baby desire.?Mother voiced understanding of the education shared along with mom/baby guide for additional resource information. Reported to the Primary RN.
[2024-10-06] MEDS: DOCUSATE SODIUM 100 MG CAPSULE PO (17:26)
[2024-10-06] MEDS: SIMETHICONE 80 MG TAB.CHEW PO (17:26)
--- NOTE | 2024-10-06 18:18 | PC.NURSE ---
On 10/06/24, the license pending nurse, Asuncion Ruiz, provided care and completed [employer] documentation on this patient. I have reviewed the license pending nurse's documentation and agree with the findings.
[2024-10-07 05:00] VITALS: BP 107/76; PULSE 79; RESP 16; TEMP 36.2; O2SAT 98
[2024-10-07 05:37] LABS: Hematocrit 35.1 % (37.0-47.0); Hemoglobin 11.5 g/dL (12.0-15.0)
[2024-10-07] MEDS: IBUPROFEN 600 MG TABLET PO ×2 (08:43→16:32)
[2024-10-07 08:45] VITALS: BP 113/75; PULSE 91; RESP 18; TEMP 36.6; O2SAT 94
--- NOTE | 2024-10-07 09:45 | P.PNOB_ITS ---
OB - PN: Subj Subjective Date/time seen: 10/07/24 09:45 Patient comments: pain well controlled, tolerating diet and other (Decreasing lochia.) OB - PN: Obj Data Labs 10/07/24 04:42 Labs: Laboratory Results - last 24 hr 10/07/24 04:42 Hgb 11.5 L Hct 35.1 L OB - PN A/P Plan day: 1 Plan: routine care Comments: Patient doing well. Time Spent With Patient Time: Total time spent is greater than 50% in coordination of care (as documented) at patient's floor/unit and/or counseling patient: Exam 2 Psych: Affect: normal affect Other: Abd: fundus firm below umbilicus, nontender Perineum: healing Ext: nontender
--- NOTE | 2024-10-07 10:10 | PC.NURSE ---
Consulted with mother concerning needs and she shared her ability to independently latch infant but has not been able to effectively feed at the breast since sometime yesterday. Mother is attempting at the breast each time for 15 mins, pumping and then supplementing with either pumped breastmilk and/or formula, baby is taking 20+mls per feed. With RN in the room, mother baby latched to the right breast in football position, she handles her very well, baby would take a few sucks and not maintain her latch. has had appropriate feedings in the last 24 hours meets the outcomes for weight, output, blood sugar and jaundice at this time. Reinforced understanding of milk production, transition of milk, signs of adequate intake, transition of stool, prevention/relief of engorgement, plugged ducts, mastitis, responsive watching for feeding cues, the different methods of stimulating to breastfeed 1-3 hours after the start of the last feeding, community resources, and when to call a provider using the resource of the feeding sheet along with the mom and baby guide. Mother voiced understanding of the information shared, is confident to continue to try and effectively feed baby at the breast with the at home, when to call for assistance, denies any additional assistance or education at this time. Reported to the Primary RN.
--- NOTE | 2024-10-07 15:39 | WPDANLDPN2 ---
Anes-Prog Note L&D Date/Time: 10/07/24 15:39 Comfortable throughout: labor and delivery Neuraxial method: epidural Epidural/Spinal procedure site: clean & non-tender Neuro status: Neuro function grossly intact. Cardiovascular status: normal Respiratory status: normal Airway patency: baseline Mental status: baseline Post-Op hydration status: normal Vital Signs: Last Vital Signs Temp 36.6 C 10/07/24 08:45 Pulse 91 10/07/24 08:45 Resp 18 10/07/24 08:45 BP 113/75 10/07/24 08:45 Pulse Ox 94 10/07/24 08:45 O2 Del Method Room Air 10/06/24 20:00 Pain score (VAS): 2 I/O: Intake & Output 10/06/24 10/07/24 10/07/24 23:59 07:59 15:59 Intake Total 240 Balance 240 Post-procedural complaints: none Patient feedback: Patient satisfied with anesthetic care.
[2024-10-09 11:09] VITALS: BP 118/85; PULSE 93; RESP 18; TEMP 36.6; O2SAT 100
== END 2024-10-07 17:30 | disposition home or self-care (01) | DRG 807 ==
LOC: ANHLDR 18:50 → ANHOB2 10-06 14:28
PROVIDERS: Admitting Provider Obstetrics & Gynecology; PCP Student in an Organized Health Care Education/Training Program; Visit Provider Obstetrics & Gynecology
DX: O36.63X0 Maternal care for excessive fetal growth, third trimester, not applicable or unspecified (principal); Z37.0 Single live birth; Z3A.39 39 weeks gestation of pregnancy; O66.0 Obstructed labor due to shoulder dystocia
CPT/HCPCS: 36415; 85014; 85018; 85025; 86592; 86703; 86850; 86900; 86901; A9270; G0432; J2371; J2405; J2590; J2795; J7120